=== PATIENT | female | born 1950 | race Caucasian/White ===

== ENCOUNTER 2017-04-25 09:53 | Outpatient (CLI) | payer MEDICARE ==
--- NOTE | 2017-04-25 10:37 | RAD ---
TWO VIEW CHEST: HISTORY: Dyspnea. COMPARISON: 04/20/14. Lung fel[place] are clear. No infiltrate. Vascular markings normal. Heart and mediastinum are unremark able. Deformity of the right clavicle from old healed fracture. Degenerative changes in the thoracic spine without compression deformity. IMPRESSION: No acute abnormality. No interval change when compared to 04/20/14. POS: [facility]
== END 2017-04-25 09:54 | disposition home or self-care (01) ==
LOC: MAMMO 09:53
PROVIDERS: ATTEND Internal Medicine Critical Care Medicine
DX: R06.00 Dyspnea, unspecified (principal)
CPT/HCPCS: 71046